=== PATIENT | male | born 1985 | race American Indian/Alaskan Native ===

== ENCOUNTER 2021-10-22 07:09 | Day surgery (SDC) | payer MEDICARE, OTHER ==
[~2021-10-22 07:09] MED LIST: Lactated Ringers 1,000 ML IV SCH; Sodium Chloride 0.9% 10 ML Syringe FLUSH PRN; Sodium Chloride 0.9% 2.5 ML Syringe FLUSH PRN; Sodium Chloride 0.9% 20 ML SDV IV PRN
[2021-10-22] MEDS ORDERED: fentaNYL 100 MCG/2 ML SDV ONE (07:42)
[2021-10-22] MEDS ORDERED: Midazolam 1 MG/ML 2 ML SDV ONE (07:42)
[2021-10-22] MEDS ORDERED: Propofol 200 MG/20 ML SDV ONE ×2 (07:42→09:00)
[2021-10-22] MEDS ORDERED: Benzocaine 20% Topical Spray UD ONE (07:49)
[2021-10-22] MEDS ORDERED: Ketamine 500 mg/10 ML MDV ONE (09:00)
[2021-10-22 10:17] VITALS: BP 133/74; PULSE 94
== END 2021-10-22 10:54 | disposition home or self-care (01) ==
LOC: MW.SDS 07:09
PROVIDERS: ATTEND Surgery
DX: D12.0 Benign neoplasm of cecum (principal); K82.8 Other specified diseases of gallbladder; K21.9 Gastro-esophageal reflux disease without esophagitis; M96.1 Postlaminectomy syndrome, not elsewhere classified; G57.00 Lesion of sciatic nerve, unspecified lower limb; E66.9 Obesity, unspecified; Z68.41 Body mass index [BMI] 40.0-44.9, adult; F41.9 Anxiety disorder, unspecified; F32.A Depression, unspecified; Z88.5 Allergy status to narcotic agent; Z98.890 Other specified postprocedural states; Z87.891 Personal history of nicotine dependence
CPT/HCPCS: 43239; 45380; 88305; A9270; J2250; J2704; J3010; J7120; 00813

== ENCOUNTER 2021-11-10 06:55 | Day surgery (SDC) | payer MEDICARE, OTHER ==
[~2021-11-10 06:55] MED LIST changes: +ceFAZolin 2 GM in Premix Bag 1 BAG IV ONE
[2021-11-10] MEDS ORDERED: Ondansetron 4 MG/2 ML SDV IVPUSH PRN (07:44)
[2021-11-10] MEDS ORDERED: HYDROmorphone 1 MG/ML Syringe IVPUSH PRN (07:44)
[2021-11-10] MEDS ORDERED: Naloxone 0.4 MG/ML SDV IVPUSH PRN (07:44)
[2021-11-10] MEDS ORDERED: Albuterol 0.083% 2.5 MG/3 ML Neb Soln NEB PRN (07:44)
[2021-11-10] MEDS ORDERED: Metoclopramide 10 MG/2 ML SDV IVPUSH PRN (07:44)
[2021-11-10] MEDS ORDERED: Dexamethasone 4 MG/ML 5 ML MDV ONE (07:45)
[2021-11-10] MEDS ORDERED: Propofol 200 MG/20 ML SDV ONE (07:45)
[2021-11-10] MEDS ORDERED: Dexmedetomidine 200 MCG/2 ML SDV ONE (07:45)
[2021-11-10] MEDS ORDERED: Rocuronium Bromide 50 MG/5 ML Syringe ONE ×2 (07:45→10:33)
[2021-11-10] MEDS ORDERED: Lidocaine 2% 5 ML SDV ONE (07:45)
[2021-11-10] MEDS ORDERED: Esmolol 100 MG/10 ML SDV ONE (07:46)
[2021-11-10] MEDS ORDERED: Water For Injection, Sterile 20 ML ONE (07:46)
[2021-11-10] MEDS ORDERED: Midazolam 1 MG/ML 2 ML SDV ONE (07:46)
[2021-11-10] MEDS ORDERED: Bupivacaine 0.5% 30 ML SDV ONE (09:22)
[2021-11-10] MEDS ORDERED: Octyl 2-Cyanoacrylate 1 Tube ONE (09:22)
[2021-11-10] MEDS ORDERED: Ketamine HCL/NACL, ISO-OSM 50 MG/5 ML Syringe ONE (09:48)
[2021-11-10] MEDS ORDERED: ceFAZolin 1 GM Vial ONE (09:52)
[2021-11-10] MEDS ORDERED: ePHEDrine 50 MG/ML SDV ONE (10:33)
[2021-11-10] MEDS ORDERED: Ondansetron 4 MG/2 ML SDV ONE (10:35)
[2021-11-10] MEDS ORDERED: Sugammadex Sodium 200 MG/2 ML VIAL ONE (10:35)
[2021-11-10] MEDS ORDERED: Ketorolac 30 MG/ML SDV ONE (10:35)
[2021-11-10] MEDS: fentaNYL 100 MCG/2 ML SDV IVPUSH PRN ×2 (11:35→11:44)
[2021-11-10] MEDS ORDERED: Cyclobenzaprine 10 MG Tab PO ONE (12:31)
[2021-11-10 15:10] VITALS: BP 102/54; PULSE 69
== END 2021-11-10 13:15 | disposition home or self-care (01) ==
LOC: MW.SDS 06:55
PROVIDERS: ATTEND Surgery
DX: K81.1 Chronic cholecystitis (principal); K82.8 Other specified diseases of gallbladder; K21.9 Gastro-esophageal reflux disease without esophagitis; E66.9 Obesity, unspecified; F41.9 Anxiety disorder, unspecified; F32.A Depression, unspecified; Z98.890 Other specified postprocedural states; Z68.41 Body mass index [BMI] 40.0-44.9, adult; Z88.5 Allergy status to narcotic agent; Z87.891 Personal history of nicotine dependence; Z80.0 Family history of malignant neoplasm of digestive organs
CPT/HCPCS: 47562; 88304; A9270; J0131; J0690; J1100; J1170; J1885; J2250; J2370; J2405; J2704; J3010; J3490; J7030; J7120; 00790

== ENCOUNTER 2024-12-23 13:02 | Emergency (ER) | payer BC, MEDICARE ==
[2024-12-23 13:14] VITALS: BP 141/89; PULSE 90
[2024-12-23] MEDS ORDERED: ceFAZolin 1 GM in Sodium Chloride 0.9% 50 ML IV ONE (13:25)
[2024-12-23] MEDS ORDERED: VANCOmycin 2 GM/400 ML 2 GM in Premix Bag 1 BAG IV ONE (13:45)
== END 2024-12-23 13:39 | disposition left against medical advice (07) ==
LOC: MW.ED 13:02
DX: L03.113 Cellulitis of right upper limb (principal); F17.210 Nicotine dependence, cigarettes, uncomplicated; Z88.5 Allergy status to narcotic agent
CPT/HCPCS: 99283

== ENCOUNTER 2025-01-24 13:29 | Emergency (ER) | payer MEDICARE ==
[2025-01-24] MEDS: Lidocaine 1% with EPINEPHrine 1:100,000 10 ML MDV INFILT ONE (13:50)
[2025-01-24] MEDS: Acetaminophen 500 MG Tab PO ONE (13:56)
[2025-01-24] MEDS: Ketorolac 30 MG/ML SDV IM ONE (13:56)
[2025-01-24] MEDS: Diphtheria,Pertussis(Acell),Tetanus Vaccine 0.5 ML Syringe IM ONE (13:56)
[2025-01-24 14:55] VITALS: BP 136/96; PULSE 98
== END 2025-01-24 14:55 | disposition home or self-care (01) ==
LOC: MW.ED 13:29
DX: S91.311A Laceration without foreign body, right foot, initial encounter (principal); Z88.5 Allergy status to narcotic agent; W26.0XXA Contact with knife, initial encounter; Z23 Encounter for immunization
CPT/HCPCS: 12002; 73630; 90471; 90715; 96372; 99283; A9270; J1885; 12041

== ENCOUNTER 2025-03-29 13:02 | Emergency (ER) | payer MEDICARE ==
[2025-03-29 13:55] LABS: BASOPHILS ABSOLUTE AUTO 0.03 K/uL (0.00-0.20); BASOPHILS PERCENT AUTO 0.5 % (0.0-1.0); EOSINOPHILS ABSOLUTE AUTO 0.11 K/uL (0.00-0.45); EOSINOPHILS PERCENT AUTO 1.8 % (0.0-6.0); IMMATURE GRAN ABSOLUTE AUTO 0.02 K/uL (0.00-0.05); IMMATURE GRAN PERCENT AUTO 0.3 % (0.0-0.4); LYMPHOCYTES ABSOLUTE AUTO 0.97 K/uL (1.00-4.80); LYMPHOCYTES PERCENT AUTO 16.2 % (24.0-44.0); MEAN PLATELET VOLUME 11.0 fL (9.4-12.4); MONOCYTES ABSOLUTE AUTO 0.56 K/uL (0.00-0.80); MONOCYTES PERCENT AUTO 9.4 % (0.0-8.0); NEUTROPHILS ABSOLUTE AUTO 4.29 K/uL (1.80-7.70); NEUTROPHILS PERCENT AUTO 71.8 % (41.0-71.0); NRBC ABSOLUTE 0.00 K/uL (0.00-0.02); NRBC PERCENT 0.0 /100WBC (0.0-0.2); PLATELET COUNT,PLT 114 K/uL (150-400); RED BLOOD CELL COUNT 4.57 M/uL (4.52-5.90); WHITE BLOOD CELL COUNT,WBC 5.98 K/uL (3.9-11.3)
[2025-03-29 14:00] LABS: A/G RATIO 1.1 (0.9-1.6); ALANINE AMINOTRANSFERASE,ALT 356.0 IU/L (14-63); ASPARTATE AMNIOTRANSFERASE,AST 245.0 IU/L (15-37); BILIRUBIN TOTAL 1.6 mg/dL (0.2-1.0); BLOOD UREA NITROGEN,BUN 17.0 mg/dL (7.0-18.0); CARBON DIOXIDE,CO2 24.4 mmol/L (21.0-32.0); CHLORIDE,CL 94.0 mmol/L (98-107); CREATININE 1.1 mg/dL (0.8-1.3); EST CRCL DRUG DOSING (CG) 88.09 mL/min; GLUCOSE RANDOM 135.0 mg/dL (74-106); POTASSIUM,K 3.3 mmol/L (3.5-5.1); PROTEIN TOTAL,TP 7.3 g/dL (6.4-8.2); SODIUM,NA 132.0 mmol/L (136-148)
[2025-03-29 14:13] LABS: ESTIMATED GFR 88.0 mL/min (>60)
[2025-03-29 14:20] LABS: INR 1.02 (0.86-1.11); PTT,PARTIAL THROMBOPLSTIN TIME 21.4 SEC (23.9-30.7)
[2025-03-29 14:47] LABS: CREATINE KINASE,CK 392.0 U/L (26-308)
[2025-03-29 15:33] LABS: PROLACTIN 30.3 ng/mL
[2025-03-29] MEDS: Potassium Chloride 20 MEQ Tab.ER PO ONE (15:59)
[2025-03-29] MEDS: Magnesium Sulfate 2 GM/50 mL 2 GM in Premix Bag 1 BAG IV ONE (16:00)
[2025-03-29] MEDS: Sodium Chloride 0.9% 10 ML Syringe FLUSH PRN (16:01)
[2025-03-29] MEDS: Sodium Chloride 0.9% 2.5 ML Syringe FLUSH PRN (16:01)
[2025-03-29 17:22] VITALS: BP 127/91; PULSE 72
[2025-03-29] MEDS ORDERED: levETIRAcetam 500 MG/5 ML SDV IVPUSH ONE (17:27)
== END 2025-03-29 18:05 | disposition left against medical advice (07) ==
LOC: MW.ED 13:02
DX: R56.9 Unspecified convulsions (principal); F10.139 Alcohol abuse with withdrawal, unspecified; R74.8 Abnormal levels of other serum enzymes; Z88.5 Allergy status to narcotic agent; Y90.0 Blood alcohol level of less than 20 mg/100 ml
CPT/HCPCS: 36415; 70450; 70486; 71046; 72125; 73080; 80053; 80307; 82140; 82550; 83690; 83735; 84146; 84484; 85025; 85610; 85730; 93005; 96361; 96365; 99285; A9270; J3475; J7030; 99283

== ENCOUNTER 2025-05-17 12:36 | Emergency (ER) | payer MEDICARE ==
[2025-05-17] MEDS: methylPREDNISolone Sodium Succinate 125 MG/2 ML SDV IM ONE (13:06)
[2025-05-17] MEDS: Ketorolac 60 MG/2 ML SDV IM ONE (13:07)
[2025-05-17 14:07] VITALS: BP 127/106; PULSE 88
== END 2025-05-17 14:07 | disposition home or self-care (01) ==
LOC: MW.ED 12:36
DX: M54.41 Lumbago with sciatica, right side (principal); Z75.3 Unavailability and inaccessibility of health-care facilities; Z79.899 Other long term (current) drug therapy; Z88.5 Allergy status to narcotic agent; Z88.8 Allergy status to other drugs, medicaments and biological substances
CPT/HCPCS: 72131; 96372; 99283; J1885; J2919

== ENCOUNTER 2025-05-21 07:40 | Emergency (ER) | payer MEDICARE ==
[2025-05-21 07:53] VITALS: BP 156/102; PULSE 93
== END 2025-05-21 08:49 | disposition left against medical advice (07) ==
LOC: MW.ED 07:40
DX: M25.551 Pain in right hip (principal); M25.552 Pain in left hip; G89.29 Other chronic pain; Z88.5 Allergy status to narcotic agent; Z79.899 Other long term (current) drug therapy
CPT/HCPCS: 99282; 99283

== ENCOUNTER 2025-06-14 20:53 | Emergency (ER) | payer MEDICARE ==
[2025-06-14 21:13] VITALS: BP 110/73; PULSE 90
[2025-06-14] MEDS: Dexamethasone Sod Phos Preservative Free 10 MG/ML Vial IM ONE (21:25)
== END 2025-06-14 21:30 | disposition home or self-care (01) ==
LOC: MW.ED 20:53
DX: M54.50 Low back pain, unspecified (principal); G89.29 Other chronic pain; Z88.5 Allergy status to narcotic agent; Z79.899 Other long term (current) drug therapy
CPT/HCPCS: 96372; 99284; A9270; J1100; 99283

== ENCOUNTER 2025-06-27 22:00 | Emergency (ER) | payer MEDICARE ==
[2025-06-27 22:07] VITALS: BP 132/99; PULSE 133
[2025-06-27 22:21] LABS: BASOPHILS ABSOLUTE AUTO 0.06 K/uL (0.00-0.20); BASOPHILS PERCENT AUTO 0.8 % (0.0-1.0); EOSINOPHILS ABSOLUTE AUTO 0.00 K/uL (0.00-0.45); EOSINOPHILS PERCENT AUTO 0.0 % (0.0-6.0); IMMATURE GRAN ABSOLUTE AUTO 0.02 K/uL (0.00-0.05); IMMATURE GRAN PERCENT AUTO 0.3 % (0.0-0.4); LYMPHOCYTES ABSOLUTE AUTO 1.50 K/uL (1.00-4.80); LYMPHOCYTES PERCENT AUTO 19.9 % (24.0-44.0); MEAN PLATELET VOLUME 9.1 fL (9.4-12.4); MONOCYTES ABSOLUTE AUTO 0.40 K/uL (0.00-0.80); MONOCYTES PERCENT AUTO 5.3 % (0.0-8.0); NEUTROPHILS ABSOLUTE AUTO 5.54 K/uL (1.80-7.70); NEUTROPHILS PERCENT AUTO 73.7 % (41.0-71.0); NRBC ABSOLUTE 0.00 K/uL (0.00-0.02); NRBC PERCENT 0.0 /100WBC (0.0-0.2); PLATELET COUNT,PLT 257 K/uL (150-400); RED BLOOD CELL COUNT 5.27 M/uL (4.52-5.90); WHITE BLOOD CELL COUNT,WBC 7.52 K/uL (3.9-11.3)
[2025-06-27 22:54] LABS: A/G RATIO 1.0 (0.9-1.6); ALANINE AMINOTRANSFERASE,ALT 267 IU/L (14-63); ASPARTATE AMNIOTRANSFERASE,AST 280 IU/L (15-37); BILIRUBIN TOTAL 1.1 mg/dL (0.2-1.0); BLOOD UREA NITROGEN,BUN 13 mg/dL (7.0-18.0); CARBON DIOXIDE,CO2 20.0 mmol/L (21.0-32.0); CHLORIDE,CL 96 mmol/L (98-107); CREATININE 1.0 mg/dL (0.8-1.3); GLUCOSE RANDOM 120 mg/dL (74-106); POTASSIUM,K 3.6 mmol/L (3.5-5.1); PROTEIN TOTAL,TP 8.3 g/dL (6.4-8.2); SODIUM,NA 140 mmol/L (136-148)
[2025-06-27 22:55] LABS: ESTIMATED GFR 98 mL/min (>60); ETHANOL BLOOD MEDICAL 413 mg/dL
== END 2025-06-28 00:33 | disposition left against medical advice (07) ==
LOC: MW.ED 22:00
DX: R55 Syncope and collapse (principal); F10.90 Alcohol use, unspecified, uncomplicated; F17.200 Nicotine dependence, unspecified, uncomplicated; Z88.5 Allergy status to narcotic agent; Z88.8 Allergy status to other drugs, medicaments and biological substances; Z79.899 Other long term (current) drug therapy; W19.XXXA Unspecified fall, initial encounter
CPT/HCPCS: 36415; 70450; 71045; 72125; 80053; 80307; 83735; 84484; 85025; 93005; 96360; 99285; A9270; J7030; 93010; 99283